=== PATIENT | female | born 1975 | race Caucasian/White ===

== ENCOUNTER 2017-09-05 08:49 | Emergency (ER) | payer OTHER, SELFPAY ==
[2017-09-05] MEDS ORDERED: DUONEB 0.5-3 MG/3 ml Neb IH ONE ×2 (08:57→09:02)
[2017-09-05 09:07] VITALS: PULSE 80; O2SAT 99
--- NOTE | 2017-09-05 09:15 | ERPHSYRPT ---
- History of Present Illness Time Seen by Provider: 09/05/17 09:11 Source: patient Exam Limitations: no limitations Patient Subjective Stated Complaint: pt states she has had a cough and cold for the past few days. denies cough being productive. denies any fever. Triage Nursing Assessment: pt pink, warm, dry. lung sounds wheezes with some rhonchi. pt breathing wnl. Physician History: The patient is a 42-year-old female complaining of increasing shortness of breath and wheezing with cough since Tuesday. About once a year she has this wheezing and coughing. Her past medical history significant for asthmatic bronchitis. Timing/Duration: day(s) (3) Activities at Onset: none Severity of Dyspnea-Max: moderate Severity of Dyspnea-Current: moderate Possible Cause: occasional episodes Modifying Factors: Improves With: albuterol inhaler, coughing, exertion Associated Symptoms: cough, wheezing Allergies/Adverse Reactions: acetaminophen [From Darvocet-N 100] Allergy (Mild, Verified 09/05/17 09:02) Penicillins Allergy (Mild, Verified 09/05/17 09:02) propoxyphene napsylate [From Darvocet-N 100] Allergy (Mild, Verified 09/05/17 09 :02) Hx Tetanus, Diphtheria Vaccination/Date Given: Yes (up to date) Hx Influenza Vaccination/Date Given: No Hx Pneumococcal Vaccination/Date Given: Yes Immunizations Up to Date: Yes - Review of Systems Constitutional: No Fever, No Chills Eyes: No Symptoms Ears, Nose, & Throat: No Symptoms Respiratory: Cough, Wheezing Cardiac: No Chest Pain, No Edema, No Syncope Abdominal/Gastrointestinal: No Abdominal Pain, No Nausea, No Vomiting, No Diarrhea Genitourinary Symptoms: No Dysuria Musculoskeletal: No Back Pain, No Neck Pain Skin: No Rash Neurological: No Dizziness, No Focal Weakness, No Sensory Changes Psychological: No Symptoms Endocrine: No Symptoms Hematologic/Lymphatic: No Symptoms Immunological/Allergic: No Symptoms All Other Systems: Reviewed and Negative - Past Medical History Pertinent Past Medical History: No Neurological History: No Pertinent History ENT History: No Pertinent History Cardiac History: No Pertinent History Respiratory History: Bronchitis, Pneumonia Endocrine Medical History: No Pertinent History Musculoskeletal History: No Pertinent History GI Medical History: No Pertinent History History: No Pertinent History Psycho-Social History: Anxiety, Depression Female Reproductive Disorders: No Pertinent History - Past Surgical History Past Surgical History: Yes Neuro Surgical History: No Pertinent History Cardiac: No Pertinent History Respiratory: No Pertinent History Gastrointestinal: No Pertinent History Genitourinary: No Pertinent History Musculoskeletal: No Pertinent History Female Surgical History: Tubal Ligation - Social History Smoking Status: Current every day smoker How long have you smoked: 20 Exposure to second hand smoke: No Drug Use: none Patient Lives Alone: No - Female History Hx Last Menstrual Period: middle jul 2017 Hx Now: No - Nursing Vital Signs Nursing Vital Signs: Initial Vital Signs Temperature 97.4 F 09/05/17 08:57 Pulse Rate 82 09/05/17 08:57 Respiratory Rate 18 09/05/17 08:57 Blood Pressure 104/48 09/05/17 08:57 O2 Sat by Pulse Oximetry 96 09/05/17 08:57 Pain Scale Pain Intensity 0 - Physical Exam General Appearance: mild distress Eye Exam: PERRL/EOMI Ears, Nose, Throat Exam: hearing grossly normal Neck Exam: normal inspection, supple Respiratory Exam: wheezing Cardiovascular/Chest Exam: normal heart sounds, regular rate/rhythm Abdominal/Gastrointestinal Exam: soft, No tenderness, No distention, No mass Rectal Exam: not done Extremity Exam: non-tender, normal range of motion, normal inspection, no calf tenderness, no pedal edema Neurologic Exam: alert, oriented x 3, cooperative, 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, sensation nml, No motor deficits Skin Exam: normal color, warm, No dry SpO2 Interpretation: normal SpO2: 99 Oxygen Delivery: Room Air - Radiology Exams Chest X-ray Interpretation: Teleradiologist Report, Negative (Per Dr Felton.) Ordered Tests: Active Orders 24 hr Category Date Time Status CHEST 2 VIEWS (PA AND LAT) Stat Exams 09/05/17 09:12 Completed Respiratory Nebulizer STAT RT 09/05/17 08:57 Completed Medication Summary Discontinued Medications Generic Name Dose Route Start Last Admin Trade Name Freq PRN Reason Stop Dose Admin Albuterol/Ipratropium 3 ml 09/05/17 08:57 09/05/17 09:03 Duoneb 0.5-3 Mg/3 Ml Neb IH 09/05/17 08:58 3 ml STAT ONE Administration Albuterol/Ipratropium Confirm 09/05/17 09:02 Duoneb 0.5-3 Mg/3 Ml Neb Administered 09/05/17 09:03 Dose 3 ml IH .STK-MED ONE - Progress Progress: improved Air Movement: good Counseled pt/family regarding: diagnosis, need for follow-up, rad results - Departure Time of Disposition: 09:47 Departure Disposition: Home Clinical Impression: Wheezing Condition: Stable Critical Care Time: No Referrals: DOCTOR,NO FAMILY [Primary Care Provider] - Additional Instructions: You have wheezing that is caused by a viral induced bronchospasm. You were given a DuoNeb in the ER. Take prednisone 60 mg daily for 5 days. Follow-up this week with your local doctor. Prescriptions: Prednisone 10 mg [Deltasone 10 mg] 60 mg PO DAILY #30 tablet
--- NOTE | 2017-09-05 09:42 | XRAY ---
Indication: Short of breath, cough, and wheezing. Comparison: January 26, 2016. PA/lateral chest again demonstrates normal heart, lungs, and bony thorax with a few incidental calcified granulomas.
[2017-09-05 10:06] VITALS: BP 127/73
== END 2017-09-05 10:07 | disposition home or self-care (01) ==
LOC: ED 08:49
DX: R06.2 Wheezing (principal); R05 Cough
CPT/HCPCS: 71020; 94640; 99283; A9270-GY

== ENCOUNTER 2017-09-12 05:49 | Emergency (ER) | payer OTHER ==
[2017-09-12] MEDS ORDERED: DUONEB 0.5-3 MG/3 ml Neb IH ONE ×2 (06:16→06:31)
[2017-09-12] MEDS ORDERED: solu-MEDROL 125 MG IV ONE (06:16)
--- NOTE | 2017-09-12 06:24 | ERPHSYRPT ---
- History of Present Illness Time Seen by Provider: 09/12/17 06:18 Source: patient Exam Limitations: no limitations Physician History: This is a 42-year-old white female with history of asthmatic bronchitis, pneumonia, anxiety, depression. Patient arrives with complaint of a cough for one week. She states that she has been seen him in this emergency room on 05 September also has been seen at [facility] last Tuesday. Patient states that she has been on steroids prednisone 60 mg a day for 5 days which she finished last Tuesday. She states that she has a Proventil inhaler apparently she has a prescription for a pro-air inhaler which she has not filled. She also states that she is on Zithromax, she is on day 3. She states that she is on some other antibiotic which she has not filled. Patient states she is coughing a lot and having problems sleeping because of her coughing. Past medical history includes asthmatic bronchitis, pneumonia, anxiety, depression. Past surgical history includes tubal ligation. Social history is positive for tobacco use Timing/Duration: week(s) (one week) Cough Quality/Degree: moderate Possible Cause: occasional episodes Modifying Factors: Improves With: albuterol inhaler, coughing. Worsens With: albuterol nebulizer, deep breath, exertion, lying down, oxygen Associated Symptoms: cough, wheezing, No fever, No chills, No chest pain/ soreness, No dizziness, No earache, No facial pain, No headache, No lightheadedness, No muscle aches, No nasal congestion, No nasal drainage, No shortness of breath, No sinus infection, No sore throat International travel in last 2 weeks: No Allergies/Adverse Reactions: acetaminophen [From Darvocet-N 100] Allergy (Mild, Verified 09/12/17 06:43) Penicillins Allergy (Mild, Verified 09/12/17 06:43) propoxyphene napsylate [From Darvocet-N 100] Allergy (Mild, Verified 09/12/17 06 :43) Home Medications: Azithromycin [Zithromax Tri-Omar] 500 mg PO UD 09/12/17 [History] Hx Tetanus, Diphtheria Vaccination/Date Given: Yes (up to date) Hx Influenza Vaccination/Date Given: No Hx Pneumococcal Vaccination/Date Given: Yes - Review of Systems Constitutional: No Fever, No Chills Eyes: No Symptoms Ears, Nose, & Throat: No Symptoms, No Ear Pain, No Ear Discharge, No Hearing Changes, No Tinnitus, No Nose Pain, No Nose Congestion, No Nose Discharge, No Epistaxis, No Mouth Pain, No Mouth Swelling, No Loose Teeth, No Throat Pain, No Throat Swelling, No Painful Swallowing, No Snoring, No Stridor Respiratory: Cough, Wheezing, Other (patient states she has a nonproductive cough, she states she cannot get anything up), No Dyspnea Cardiac: No Chest Pain, No Edema, No Syncope Abdominal/Gastrointestinal: No Abdominal Pain, No Nausea, No Vomiting, No Diarrhea Genitourinary Symptoms: No Dysuria Musculoskeletal: No Back Pain, No Neck Pain Skin: No Rash Neurological: No Dizziness, No Focal Weakness, No Sensory Changes Psychological: No Symptoms Endocrine: No Symptoms All Other Systems: Reviewed and Negative - Past Medical History Pertinent Past Medical History: No Neurological History: No Pertinent History ENT History: No Pertinent History Cardiac History: No Pertinent History Respiratory History: Bronchitis, Pneumonia Endocrine Medical History: No Pertinent History Musculoskeletal History: No Pertinent History GI Medical History: No Pertinent History History: No Pertinent History Psycho-Social History: Anxiety, Depression Female Reproductive Disorders: No Pertinent History - Past Surgical History Past Surgical History: Yes Neuro Surgical History: No Pertinent History Cardiac: No Pertinent History Respiratory: No Pertinent History Gastrointestinal: No Pertinent History Genitourinary: No Pertinent History Musculoskeletal: No Pertinent History Female Surgical History: Tubal Ligation - Social History Smoking Status: Current every day smoker How long have you smoked: 20 Exposure to second hand smoke: No Drug Use: none Patient Lives Alone: No - Female History Hx Now: No - Nursing Vital Signs Nursing Vital Signs: Initial Vital Signs Temperature 97.9 F 09/12/17 06:26 Pulse Rate 80 09/12/17 06:26 Respiratory Rate 20 09/12/17 06:26 Blood Pressure 110/70 09/12/17 06:26 O2 Sat by Pulse Oximetry 96 09/12/17 06:26 Pain Scale Pain Intensity 0 - Physical Exam General Appearance: no apparent distress, alert Eye Exam: PERRL/EOMI, eyes nml inspection Ears, Nose, Throat Exam: normal ENT inspection, TMs normal, pharynx normal, moist mucous membranes Neck Exam: normal inspection, non-tender, supple, full range of motion Respiratory Exam: airway intact, rhonchi, wheezing Cardiovascular Exam: regular rate/rhythm, normal heart sounds Gastrointestinal/Abdomen Exam: soft, No tenderness Back Exam: normal inspection, No CVA tenderness, No vertebral tenderness Extremity Exam: normal inspection, normal range of motion Neurologic Exam: alert, oriented x 3, cooperative, normal mood/affect, sensation nml, No motor deficits Skin Exam: normal color, warm, dry, No rash Lymphatic Exam: No adenopathy SpO2 Interpretation: normal - Course Nursing assessment & vital signs reviewed: Yes - Radiology Exams Chest X-ray Interpretation: Interpreted by me, Negative, No Pneumonia, No Pneumothorax , Other (no acute disease process) Ordered Tests: Active Orders 24 hr Category Date Time Status IV Insertion STAT Care 09/12/17 06:16 Active Pulse Oximetry (ED) STAT Care 09/12/17 06:16 Active CHEST 1 VIEW (PORTABLE) Stat Exams 09/12/17 06:17 Taken CBC W DIFF Stat Lab 09/12/17 06:30 Completed CMP Stat Lab 09/12/17 06:30 Completed Manual Differential NC Stat Lab 09/12/17 06:30 Completed Respiratory Nebulizer STAT RT 09/12/17 06:18 Completed Medication Summary Discontinued Medications Generic Name Dose Route Start Last Admin Trade Name Freq PRN Reason Stop Dose Admin Albuterol/Ipratropium 3 ml 09/12/17 06:16 09/12/17 06:33 Duoneb 0.5-3 Mg/3 Ml Neb IH 09/12/17 06:17 3 ml STAT ONE Administration Albuterol/Ipratropium Confirm 09/12/17 06:31 Duoneb 0.5-3 Mg/3 Ml Neb Administered 09/12/17 06:32 Dose 3 ml IH .STK-MED ONE Methylprednisolone Sodium Succinate 125 mg 09/12/17 06:16 09/12/17 06:42 Solu-Medrol 125 Mg IV 09/12/17 06:17 125 mg STAT ONE Administration Methylprednisolone Sodium Succinate Confirm 09/12/17 06:39 Solu-Medrol 125 Mg Administered 09/12/17 06:40 Dose 125 mg .ROUTE .STK-MED ONE Lab/Rad Data: Laboratory Result Diagrams 09/12/17 06:30 09/12/17 06:30 Laboratory Results 09/12/17 09/12/17 Range/Units 06:30 06:30 WBC 7.6 (4.0-10.5) K/mm3 RBC 4.75 (4.1-5.4) M/mm3 Hgb 13.9 (12.0-16.0) gm/dl Hct 42.6 (35-47) % MCV 89.7 (78-100) fl MCH 29.3 (26-32) pg MCHC 32.6 (32-36) g/dl RDW 13.5 (11.5-14.0) % Plt Count 270 (150-450) K/mm3 MPV 9.7 H (6-9.5) fl Sodium 142 (136-145) mEq/L Potassium 3.6 (3.5-5.1) mEq/L Chloride 105 (98-107) mEq/L Carbon Dioxide 28.7 (21-32) mEq/L Anion Gap 12.3 (5-15) MEQ/L BUN 11 (9-20) mg/dL Creatinine 0.89 (0.55-1.30) mg/dl Estimated GFR > 60 ML/MIN Glucose 107 (70-110) MG/DL Calcium 8.8 (8.5-10.1) mg/dL Total Bilirubin 0.20 (0.2-1.0) mg/dL AST 11 L (15-37) U/L ALT 30 (12-78) U/L Alkaline Phosphatase 68 (46-116) U/L Serum Total Protein 6.4 (6.4-8.2) gm/dL Albumin 3.5 (3.4-5.0) g/dL - Progress Progress: improved Air Movement: fair Progress Note: 09/12/17 06:23 42-year-old white female with history of asthmatic bronchitis arrives with complaint of cough for a week. She has been seen in this emergency room also seen at [facility]. Patient has been on a course of steroids which she finished last Tuesday, 3 days ago she states she has been on Zithromax she states that she is on day 3 of the Zithromax. She has no fevers she states her cough is nonproductive. Patient states she was given a prescription from [facility] for a pro-air but and also a different antibiotic she states she has not filled this because of insurance purposes. Patient states she continues to smoke. 09/12/17 07:11 Patient feeling better after DuoNeb treatment and Solu-Medrol. Chest x-ray unremarkable CBC CMP unremarkable. Patient will be placed on tapering dose prednisone patient is still on Zithromax. Patient has a prescription for another nebulizer of albuterol at home. Will discharge patient. Patient is advised to quit smoking. Patient will be given a slip for work today - Departure Time of Disposition: 07:12 Departure Disposition: Home Clinical Impression: Asthma with exacerbation Qualifiers: Asthma severity: moderate Asthma persistence: unspecified Qualified Code(s): J45.901 - Unspecified asthma with (acute) exacerbation Condition: Fair Critical Care Time: No Referrals: JAMES JORDAN [Primary Care Provider] - Additional Instructions: Return home. Rest. Plenty of fluids. Tapering dose of prednisone as prescribed. Continue your Zithromax. Continue Proventil inhaler 2 puffs every 4-6 hours as needed be sure to fill your Proventil inhaler today. Stop smoking. Follow-up with your family doctor. Return for acute distress or for severe symptoms.
[2017-09-12 06:37] VITALS: O2SAT 97
[2017-09-12] MEDS ORDERED: solu-MEDROL 125 MG ONE (06:39)
[2017-09-12 06:44] LABS: Mean Cell Volume 89.7 fl (78-100); Mean Corpuscular Hemoglobin 29.3 pg (26-32); Mean Platelet Volume 9.7 fl (6-9.5); Platelet Count 270 K/mm3 (150-450); Red Blood Count 4.75 M/mm3 (4.1-5.4); Red Cell Distribution Width 13.5 % (11.5-14.0); White Blood Count 7.6 K/mm3 (4.0-10.5)
[2017-09-12 07:04] LABS: ALBUMIN 3.5 g/dL (3.4-5.0); ALKALINE PHOSPHATASE 68 U/L (46-116); ANION GAP 12.3 MEQ/L (5-15); BLOOD UREA NITROGEN 11 mg/dL (9-20); CHLORIDE 105 mEq/L (98-107); Carbon Dioxide 28.7 mEq/L (21-32); Glucose 107 MG/DL (70-110); Potassium 3.6 mEq/L (3.5-5.1); SGOT/AST 11 U/L (15-37); SGPT/ALT 30 U/L (12-78); SODIUM 142 mEq/L (136-145); Total Protein 6.4 gm/dL (6.4-8.2)
[2017-09-12 07:35] VITALS: BP 120/70; PULSE 78
[2017-09-12 08:20] LABS: Eosinophil 2 % (0.00-3.0); Platelet Estimate NORMAL (NORMAL); Total Cells Counted 100; Toxic Granulation 1+
--- NOTE | 2017-09-12 08:47 | XRAY ---
Indication: Cough. Comparison: September 05, 2017. Portable chest again demonstrates normal heart, lungs, and bony thorax with a few incidental calcified granulomas.
== END 2017-09-12 07:39 | disposition home or self-care (01) ==
LOC: ED 05:49
DX: J45.901 Unspecified asthma with (acute) exacerbation (principal)
CPT/HCPCS: 36000; 36415; 71010; 80053; 85025; 94640; 96374; 99284; J2930; A9270-GY

== ENCOUNTER 2019-11-01 20:59 | Emergency (ER) | payer BC, OTHER ==
--- NOTE | 2019-11-01 21:49 | ERPHSYRPT ---
- History of Present Illness Time Seen by Provider: 11/01/19 21:30 Source: patient Exam Limitations: no limitations Physician History: cough since yesterday. felt tighy in her chest, wheezing today. no lung problems. not . no fever but chuills. eating drinking well. no nausea vomiting. 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 wondering if she can get a work note. smokes 1 ppd no symp tt at home. pt is not on any meds Timing/Duration: yesterday Cough Quality/Degree: moderate, dry cough Possible Cause: occasional episodes Modifying Factors: Improves With: coughing Associated Symptoms: chills, No fever International travel in last 2 weeks: No Allergies/Adverse Reactions: acetaminophen [From Darvocet-N 100] Allergy (Mild, Verified 09/12/17 06:43) Penicillins Allergy (Mild, Verified 09/12/17 06:43) propoxyphene napsylate [From Darvocet-N 100] Allergy (Mild, Verified 09/12/17 06 :43) Home Medications: Azithromycin [Zithromax Tri-Omar] 500 mg PO UD 09/12/17 [History] Hx Tetanus, Diphtheria Vaccination/Date Given: Yes (up to date) Hx Influenza Vaccination/Date Given: No Hx Pneumococcal Vaccination/Date Given: Yes - Review of Systems Constitutional: Chills Eyes: No Symptoms Ears, Nose, & Throat: No Symptoms Respiratory: Cough, Wheezing, No Dyspnea on Exertion (BOOGIE) Cardiac: No Symptoms Abdominal/Gastrointestinal: No Symptoms Musculoskeletal: No Symptoms Skin: No Symptoms - Past Medical History Pertinent Past Medical History: No Neurological History: No Pertinent History ENT History: No Pertinent History Cardiac History: No Pertinent History Respiratory History: Bronchitis, Pneumonia Endocrine Medical History: No Pertinent History Musculoskeletal History: No Pertinent History GI Medical History: No Pertinent History History: No Pertinent History Psycho-Social History: Anxiety, Depression Female Reproductive Disorders: No Pertinent History - Past Surgical History Past Surgical History: Yes Neuro Surgical History: No Pertinent History Cardiac: No Pertinent History Respiratory: No Pertinent History Gastrointestinal: No Pertinent History Genitourinary: No Pertinent History Musculoskeletal: No Pertinent History Female Surgical History: Tubal Ligation - Social History Smoking Status: Current every day smoker How long have you smoked: 20 Exposure to second hand smoke: No Drug Use: none Patient Lives Alone: No - Physical Exam General Appearance: mild distress Eye Exam: PERRL/EOMI Ears, Nose, Throat Exam: normal ENT inspection Neck Exam: normal inspection Respiratory Exam: normal breath sounds, lungs clear, No respiratory distress Cardiovascular Exam: regular rate/rhythm Gastrointestinal/Abdomen Exam: soft, normal bowel sounds - Progress Progress: unchanged Air Movement: good Counseled pt/family regarding: need for follow-up (no smoke exp. symptomatic tt at home. work note x 3 days. prednisone, albuterol for home), smoking cessation - Departure Departure Disposition: Home Clinical Impression: Bronchitis Condition: Stable Critical Care Time: No Referrals: TASHA MUNOZ [Primary Care Provider] -
[2019-11-01 22:34] VITALS: BP 121/54; PULSE 76; O2SAT 98
== END 2019-11-01 22:35 | disposition home or self-care (01) ==
LOC: ED 20:59
DX: J40 Bronchitis, not specified as acute or chronic (principal)
CPT/HCPCS: 99283